=== PATIENT | male | born 1965 | race Native Hawaiian/Other Pacific Islander ===

== ENCOUNTER 2016-11-13 11:22 | Outpatient (CLI) | payer OTHER ==
[~2016-11-13 11:22] MED LIST: BENICAR20 MG PO; CARV3.12 PO; CLOP75TA2 PO; DICY20TA34 PO; LIPITOR80 MG PO
[2016-11-13 12:52] LABS: PLATELET COUNT 290 K/uL (142-355)
[2016-11-13 12:56] LABS: POTASSIUM 4.2 mmol/L (3.6-5.2); SODIUM 134 mmol/L (136-145)
== END 2016-11-13 21:57 | disposition home or self-care (01) ==
LOC: RAD 11:22
PROVIDERS: Nurse Practitioner Family
DX: R10.13 Epigastric pain (principal); M54.89 Other dorsalgia; E78.00 Pure hypercholesterolemia, unspecified
CPT/HCPCS: 36415; 80053; 80061; 82150; 85027; 85379

== ENCOUNTER 2019-10-30 22:17 | Observation (INO) | payer BC ==
[~2019-10-30] VITALS: Ht 172.7 cm; Wt 92.7 kg
[2019-10-30 22:17] VITALS: BP 141/84; TEMP 99.4
[2019-10-30 22:37] LABS: PLATELET COUNT 308 K/uL (142-355)
[2019-10-30 22:45] VITALS: BP 134/81
[2019-10-30 22:51] LABS: POTASSIUM 3.9 mmol/L (3.6-5.2)
[2019-10-30 23:15] VITALS: BP 132/77
[2019-10-30 23:45] VITALS: BP 135/71
[2019-10-31] VITALS (7 sets, daily range): BP systolic 99–149; BP diastolic 45–88; TEMP 98.1–98.7; Ht 172.7 cm; Wt 92.7 kg
[2019-10-31] MEDS ORDERED: AMIODARONE HYD200 MG PO ×2 (06:42→10:50)
[2019-10-31 10:16] LABS: PLATELET COUNT 262 K/uL (142-355)
[2019-10-31 10:21] LABS: POTASSIUM 4.3 mmol/L (3.6-5.2)
[2019-10-31] MEDS ORDERED: JANUMET1 TA1 PO (10:29)
[2019-10-31] MEDS ORDERED: METO-837 PO (10:50)
[2019-10-31] MEDS ORDERED: CARDIZEM60 MG PO (10:51)
[2019-10-31] MEDS ORDERED: METF500T PO (10:51)
[2019-10-31] MEDS ORDERED: LIPITOR20 MG PO (10:52)
[2019-10-31] MEDS ORDERED: EUTHYROX25 MCG PO (10:53)
[2019-10-31] MEDS ORDERED: APPLE CIDER VI600 MG PO (10:53)
[2019-10-31] MEDS ORDERED: L-LYSINE1000 M1 PO (10:54)
[2019-10-31] MEDS ORDERED: D325 MCG PO (10:55)
[2019-10-31] MEDS ORDERED: ASPIRIN 81 LOW81 MG PO (10:56)
[2019-10-31] MEDS ORDERED: UNISOM SLEEP50 MG PO (10:57)
[2019-10-31] MEDS ORDERED: PERCOCET1 TA3 PO (10:58)
[2019-11-01] VITALS: BP 98/57; TEMP 98.1
[2019-11-01 03:57] VITALS: BP 106/61; TEMP 98.1
[2019-11-01 05:39] LABS: PLATELET COUNT 233 K/uL (142-355)
[2019-11-01 05:48] LABS: POTASSIUM 3.9 mmol/L (3.6-5.2)
[2019-11-01 08:00] VITALS: BP 113/58; BP 113/68; TEMP 98
[2019-11-01 12:00] VITALS: BP 140/98; TEMP 98.1
== END 2019-11-01 14:18 | disposition home or self-care (01) ==
LOC: ED 22:17 → MED/SURG 10-31 00:06
PROVIDERS: Emergency Medicine Emergency Medical Services; Internal Medicine Endocrinology, Diabetes & Metabolism; ADMIT Internal Medicine
DX: G40.A09 Absence epileptic syndrome, not intractable, without status epilepticus (principal); I25.10 Atherosclerotic heart disease of native coronary artery without angina pectoris; I10 Essential (primary) hypertension; E11.9 Type 2 diabetes mellitus without complications; E03.8 Other specified hypothyroidism; E78.49 Other hyperlipidemia; G93.49 Other encephalopathy; Z72.0 Tobacco use
CPT/HCPCS: 36415; 80048; 80053; 80307; 82550; 82948; 84146; 84484; 85027; 93005; 96360; 96365; 96366; 96367; 99220; 99284; G0378; J1650; J1953; J2060

== ENCOUNTER 2022-01-06 21:30 | Observation (INO) | payer OTHER ==
[~2022-01-06] VITALS: Ht 172.7 cm; Wt 91.4 kg
[2022-01-06 21:30] VITALS: BP 131/91; TEMP 98.6
[~2022-01-06 21:30] MED LIST changes: +AMIODARONE HYD200 MG PO; +APPLE CIDER VI600 MG PO; +ASPIRIN 81 LOW81 MG PO; +CARDIZEM60 MG PO; +D325 MCG PO; +EUTHYROX25 MCG PO; +JANUMET1 TA1 PO; +L-LYSINE1000 M1 PO; +LIPITOR20 MG PO; +METF500T PO; +METO-837 PO; +PERCOCET1 TA3 PO; +UNISOM SLEEP50 MG PO
[2022-01-06 22:00] VITALS: BP 125/90
[2022-01-06 22:16] LABS: POTASSIUM 3.8 mmol/L (3.6-5.2)
[2022-01-06 22:19] LABS: PLATELET COUNT 294 K/uL (142-355)
[2022-01-06 22:30] VITALS: BP 116/79
[2022-01-06 23:00] VITALS: BP 105/71
[2022-01-06 23:30] VITALS: BP 98/73
[2022-01-06 23:45] VITALS: BP 121/81
[2022-01-07 01:54] VITALS: BP 123/83; TEMP 97.9; Ht 172.7 cm; Wt 91.4 kg
[2022-01-07 04:00] VITALS: BP 130/87; TEMP 98.3
[2022-01-07 07:55] VITALS: BP 133/78; TEMP 98.4
[2022-01-07] MEDS ORDERED: Z-PAK PO (09:35)
[2022-01-07] MEDS ORDERED: VITAMIN D50000 UNIT PO (09:36)
[2022-01-07] MEDS ORDERED: MOBIC15 MG PO (09:36)
[2022-01-07] MEDS ORDERED: LIPITOR20 MG PO (09:36)
[2022-01-07] MEDS ORDERED: METO25TA4 PO (09:37)
[2022-01-07] MEDS ORDERED: LEVO-T25 MCG PO (09:38)
[2022-01-07] MEDS ORDERED: ALLEGRA ALRG180 M1 PO (09:39)
[2022-01-07] MEDS ORDERED: MOUNJARO SC (09:43)
[2022-01-07] MEDS ORDERED: METF100038 PO (09:44)
[2022-01-07] MEDS ORDERED: DILTIAZEM HYDRO60 MG PO (09:44)
[2022-01-07] MEDS ORDERED: CITA20TA2 PO (09:45)
[2022-01-07] MEDS ORDERED: CELEXA10 MG PO (09:45)
[2022-01-07] MEDS ORDERED: METF500T PO (09:47)
[2022-01-07] MEDS ORDERED: TEMA30CA18 PO (09:48)
[2022-01-07] MEDS ORDERED: CELE200C2 PO (09:49)
[2022-01-07] MEDS ORDERED: ALBUTEROL108 MCG/AC INH (10:07)
[2022-01-07] MEDS ORDERED: [UNRECOGNIZED DRUG - REMARK] (10:09)
[2022-01-07] MEDS ORDERED: LAMOTRIGINE ER100 MG PO (11:37)
[2022-01-07] MEDS ORDERED: KEPPRA750 MG PO (11:46)
== END 2022-01-07 12:40 | disposition home or self-care (01) ==
LOC: ED 21:33 → MED/SURG 23:30
PROVIDERS: ADMIT Emergency Medicine Emergency Medical Services; ATTEND Internal Medicine
DX: G40.409 Other generalized epilepsy and epileptic syndromes, not intractable, without status epilepticus (principal); I10 Essential (primary) hypertension; I25.10 Atherosclerotic heart disease of native coronary artery without angina pectoris; F17.210 Nicotine dependence, cigarettes, uncomplicated; K21.9 Gastro-esophageal reflux disease without esophagitis; I25.2 Old myocardial infarction; Z95.1 Presence of aortocoronary bypass graft; E11.65 Type 2 diabetes mellitus with hyperglycemia; Z79.84 Long term (current) use of oral hypoglycemic drugs
CPT/HCPCS: 36415; 80053; 82542; 82948; 83735; 84484; 85027; 85610; 87635; 90471; 90715; 93005; 96360; 96361; 96365; 99220; 99284; G0378; J1953; U0003

== ENCOUNTER 2022-09-27 08:47 | Outpatient (CLI) | payer OTHER ==
[~2022-09-27 08:47] MED LIST changes: +ALBUTEROL108 MCG/AC INH; +ALLEGRA ALRG180 M1 PO; +CELE200C2 PO; +CELEXA10 MG PO; +CITA20TA2 PO; +DILTIAZEM HYDRO60 MG PO; +KEPPRA750 MG PO; +LAMOTRIGINE ER100 MG PO; +LEVO-T25 MCG PO; +METF100038 PO; +METO25TA4 PO; +MOBIC15 MG PO; +MOUNJARO SC; +TEMA30CA18 PO; +VITAMIN D50000 UNIT PO; +Z-PAK PO; +[UNRECOGNIZED DRUG - REMARK]
== END 2022-09-27 19:18 | disposition home or self-care (01) ==
LOC: RAD 08:47
PROVIDERS: ATTEND Physician Assistant
DX: M25.511 Pain in right shoulder (principal)

== ENCOUNTER 2022-10-06 13:42 | Outpatient (CLI) | payer OTHER | END 2022-10-06 21:34 | disposition home or self-care (01) | LOC: CT 13:42 | PROVIDERS: ATTEND Physician Assistant | DX: M75.121 Complete rotator cuff tear or rupture of right shoulder, not specified as traumatic (principal) ==